=== PATIENT | female | born 1995 | race Caucasian/White ===

== ENCOUNTER 2025-04-12 00:13 | Day surgery (SDC) | payer BC, SELFPAY ==
[2025-04-06 14:29] VITALS: BMI 29.7
--- OUTSIDE RECORDS SUMMARY | 2025-04-12 00:16 | XMS_ITS | Clinical Summary ---
Author Organization [facility] [employer] Address [address] [place] [address] Care Team Providers Care Certified Rehabilitation Counselor Name Role Phone Unavailable Primary Care Provider Unavailabl e Source Comments [facility] [employer],non-owned Affiliates and Associated Physician Practices is amultiple site organization consisting of ambulatory clinics and hospital sitesin [place], [place], [place] and [place]. This disclosure is being madepursuant to the Care Everywhere program and may not contain all information available regarding this patient. Last updated 18.[facility] [employer] Allergies No known active allergies Medications * Be aware that medications may not be up to date on this document. Alwaysverify current medications with the patient. No known medications Social History Tobacco Use Types Packs/Day Years Used Date Smoking Tobacco: Never Smokeless Tobacco: Never Comments Unknown Sex and Gender Information Value Date Recorded Sex Assigned at Not on file Legal Sex Female 7:45 AM CDT Gender Identity Not on file Sexual Orientation Not on file Last Filed Vital Signs Vital Sign Reading Time Taken Comments Blood Pressure 110/62 08/20/2020 12:13 PM WILDLIFE FORENSIC GENETICIST Pulse 68 08/20/2020 12:13 PM WILDLIFE FORENSIC GENETICIST Temperature 36.8 C (98.2 F) 08/20/2020 12:13 PM WILDLIFE FORENSIC GENETICIST Respiratory Rate 16 08/20/2020 12:13 PM WILDLIFE FORENSIC GENETICIST Oxygen Saturation 99% 08/20/2020 12:13 PM WILDLIFE FORENSIC GENETICIST Inhaled Oxygen Concentration - - Weight 72.6 kg (160 lb) 08/20/2020 12:13 PM WILDLIFE FORENSIC GENETICIST Height 170.2 cm (5' 7) 08/20/2020 12:13 PM WILDLIFE FORENSIC GENETICIST Body Mass Index 25.06 08/20/2020 12:13 PM WILDLIFE FORENSIC GENETICIST Plan of Treatment Health Maintenance Due Date Last Done Comments HIV SCREENING 2008 HEPATITIS C SCREENING 11/28/2011 DTAP/TDAP/TD VACCINES (1 - Tdap) 2012 HEPATITIS B VACCINE (1 of 3 - 19+ 3-dose series) 2012 HPV VACCINE (1 - 3-dose SCDM series) 2020 DEPRESSION SCREENING 08/02/2024 COVID-19 VACCINE (1 - 2023-2 5 season) 2025 INFLUENZA VACCINE (#1) 2025 ZOSTER VACCINE (1 of 2) 12/03/2043 HIB VACCINE Aged Out No longer eligi ble based on patient's age to complete this topic MENINGOCOCCAL (Group B) VACC INE SHARED DECISION-MAKING Aged Out No longer eligibl e based on patient's age to complete this topic MENINGOCOCCAL GROUPS A/C/Y/W VACCINE Aged Out No longer eligible b ased on patient's age to complete this topic PNEUMOCOCCAL VACCINE Aged Out No long er eligible based on patient's age to complete this topic Insurance [facility]
[2025-04-12 09:52] VITALS: BP 113/64; PULSE 70; RESP 16; TEMP 36.3; O2SAT 100; BMI 29.7
[2025-04-12] MEDS: LACTATED RINGERS 1,000 ML 150 ML IV CONT (10:10)
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
--- NOTE | 2025-04-12 10:26 | WPDHPUPDATE1 ---
History and Physical Update Update Date/Time: 04/12/25 10:26 History and Physical has been reviewed, including an updated exam of the patient. There are NO changes in the patient's condition. Risks, benefits, and alternatives have been discussed and questions answered. Patient agrees to proceed with procedure.
--- NOTE | 2025-04-12 10:31 | S_PTH ---
PATIENT: Rolly Potter LOC: [facility] Dahl#:[id number] AGE/SX: 29/F ROOM: RE04/12/[address]: Tavo Rousseau MD : 1995 BED: DIS: 04/12/2025 SPEC #: [id number] RECD: 04/12/25 11:44 STATUS: MARCOS RERandy #: [id number] CHERI: 04/12/25 10:[address]: Tavo Rousseau DEPT: [facility] Surgical RECD BY: Hetal Hood ENTERED: 04/12/25 11:44 SP TYPE: Surgical OTHR DR: Mateo Mccullough MD Tissues: A - Gastric Biopsy B - Esophageal Biopsy Procedures: Hematoxylin and Eosin Stain Gross and Microscopic Level 4 H.Pylori
[2025-04-12 10:33] VITALS: BP 113/64; PULSE 70; RESP 16; TEMP 36.3; O2SAT 100
[2025-04-12 10:34] LABS: BEDSIDEPREGUCG Negative (Negative)
[2025-04-12 10:43] VITALS: BP 110/72; PULSE 69; RESP 22; O2SAT 100
[2025-04-12 10:53] VITALS: BP 105/56; PULSE 70; RESP 20; O2SAT 100
== END 2025-04-12 11:13 | disposition home or self-care (01) ==
PROVIDERS: PCP Family Medicine; Referring Provider Nurse Practitioner Family; Visit Provider Internal Medicine Gastroenterology
PROC: 0DJ08ZZ Inspection of Upper Intestinal Tract, Via Natural or Artificial Opening Endoscopic (ICD-10-PCS; CPT 43239; principal; 2025-04-12 10:45)
DX: K21.9 Gastro-esophageal reflux disease without esophagitis (principal); K29.50 Unspecified chronic gastritis without bleeding; J45.909 Unspecified asthma, uncomplicated; G89.29 Other chronic pain; M54.50 Low back pain, unspecified; F12.90 Cannabis use, unspecified, uncomplicated; Z98.890 Other specified postprocedural states
CPT/HCPCS: 43239; 88305; 88342; J2003; J2704; J7120

== ENCOUNTER 2025-04-30 01:19 | Day surgery (SDC) | payer BC, SELFPAY ==
[2025-04-18 13:03] VITALS: BMI 29.7
--- NOTE | 2025-04-18 13:06 | PC.NURSE ---
Report to the Outpatient Waiting Room, entrance under the green pavilion located off [facility], at time _1230_ on date _04/30/25_. Planned Procedure Time: _1430_.? Time changes happen often and if your time is changed the preop area will call you the afternoon before. - You and your visitor will be asked to self-screen and do not enter if you have any COVID symptoms. Please call surgeon if you need to reschedule. - A mask is optional within the hospital at this time. Patients may have clear liquids (water, carbonated beverages, clear teas, apple juice) until 3 hours prior to surgery with a maximum of 20 ounces. - No food from midnight until time of surgery and no smoking, or chewing tobacco (or any form of nicotine). No chewing gum, candy or mints. - Infants may have breast milk until 4 hours before surgery, infant formula 6 hours prior to surgery. - Children will be allowed to drink immediately following surgery.? If applicable, please bring a bottle or sippy cup to assist with drinking. Juice, water, soda, and popsicles are readily available.? For infants on formula, please bring formula the day of surgery.? Pacifiers are allowed. Take only the following medications with a SIP of water on the morning of surgery: __NONE DO NOT STOP ANY OF YOUR OTHER PRESCRIPTION MEDICATIONS PRIOR TO SURGERY EXCEPT THE FOLLOWING Hold all vitamins and supplements for 3 days per anesthesiologist. Medications to discontinue per physician Date to take last dose Please no make-up, nail german, hairspray, perfume, deodorant, or body powder the day of surgery.? No jewelry (including any body piercings) or valuables the day of surgery, leave them at home.? Please take a shower or bath the night before, or the morning of, surgery with HIBICLENS antibacterial soap.? Wear comfortable, loose fitting clothing.? Children are encouraged to wear pajamas. - Jewelry must be removed prior to entering the operating room.? Rings and piercings that are not removed may be cut off. - The hospital will not accept responsibility for valuables.? - Please leave all valuables, including medications, at home the day of surgery. If you are going home after surgery, a licensed tractor sweeper driver must drive you home.? - NO public transportation without another adult if you receive anesthesia. - We recommend that an adult stay with you for 24 hours following discharge. - We also recommend that you do not drive, make important decision, drink alcoholic beverages, or take any drugs that were not prescribed by your health care provider for at least 24 hours after your discharge time. For Pediatric surgeries, we recommend two adults accompany the child home. Follow any additional instructions given to you from your surgeon. Telephone instructions given to PATIENT_and asked if any additional questions and then verbalized understanding. Patient advised to call surgeon office or pre surgery nurse liaison [phone] if any additional questions.
[2025-04-30] VITALS (7 sets, daily range): BP systolic 100–123; BP diastolic 51–69; PULSE 66–86; RESP 14–20; TEMP 36.2–36.6; O2SAT 100
--- OUTSIDE RECORDS SUMMARY | 2025-04-30 01:23 | XMS_ITS | Encounter Summary ---
Author Organization [facility] Healthcare Address [facility] [place] [address] Care Team Providers Care Litigation Associate Name Role Phone Miscellaneous, Not In File Primary Care Provider Unavailable Encounter Details Date Type Department Care Team (Late st Contact Info) Description 04/26/2025 Results Follow-Up [facility] [address] [place] [id number] Terrie Muñoz, DO [address] [place] [address] Pap and High Risk HPV and Genotyping (Cytology Component) Social History Tobacco Use Types Packs/Day Years Used Date Smoking Tobacco: Never Smokeless Tobacco: Never Comments No Sex and Gender Information Value Date Recorded Sex Assigned at Not on file 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 Gender Identity Not on file Sexual Orientation Not on file documented as of this encounter Ordered Prescriptions Prescription Sig Dispense Quantity Refills Last Filled Start Date End Date metroNIDAZOLE (FLAGYL) 500 mg tablet Take 1 tablet (500 mg total) by mouth 2 (two) times a day for 7 days 14 tablet 04/26/2025 05/03/2025 documented in this encounter Plan of Treatment Not on file documented as of this encounter Visit Diagnoses Not on filedocumented in this encounter Care Teams Litigation Associate Relationship Specialty Start Date End Date Miscellaneous, Not In File PCP - General 02/25/23 documented as of this encounter
--- OUTSIDE RECORDS SUMMARY | 2025-04-30 01:23 | XMS_ITS | Clinical Summary ---
Author Organization [facility] Address [address] [place] [phone] Care Team Providers Care Mud Cleaner Operator Name Role Phone Miscellaneous, Not In File Primary Care Provider Unavailable Allergies No known active allergies Medications omeprazole (PriLOSEC) 20 mg capsule Take 1 capsule (20 mg total) by mouth daily 03/26/2025 Active metroNIDAZOLE (FLAGYL) 500 mg tablet Take 1 tablet (500 mg total) by mouth 2 (two) times a day for 7 days 14 tablet 04/26/2025 Active Active Problems No known active problems Encounters Date Type Department Care Team Description 04/26/2025 Results Follow-Up [address] [phone] Terrie Muñoz DO Pap and High Risk HPV and Genotyping (Cytology Component) 04/23/2025 10:28 AM CDT - 04/23/2025 11:59 PM CDT Hospital Encounter [facility] [address] [place] [phone] Screening for malignant neoplasm of cervix Discharge Disposition: Discharge to home or self care 04/23/2025 10:00 AM CDT Office Visit [facility] [address] [place] [address] Terrie Muñoz DO Encounter for annual routine gynecological examination (Primary Dx); Screening for malignant neoplasm of cervix 04/20/2025 Telephone [facility] [address] [place] [address] Terrie Muñoz DO Appointment Reminder Call from Last 3 Months Medical History Medical History Date Comments GERD (gastroesophageal reflux disease) 03/26/2025 Social History Tobacco Use Types Packs/Day Years Used Date Smoking Tobacco: Never Smokeless Tobacco: Never Tobacco Cessation:Counseling Given: Not Answered Comments No Sex and Gender Information Value Date Recorded Sex Assigned at Not on file 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 Gender Identity Not on file Sexual Orientation Not on file Obstetrics History Para Term AB IAB SAB Ectopic Multiple Livin g Live Births 0 0 0 0 0 0 0 0 0 0 0 Last Filed Vital Signs Vital Sign Reading Time Taken Comments Blood Pressure 126/62 04/23/2025 9:51 AM CDT Pulse - - Temperature - - Respiratory Rate - - Oxygen Saturation - - Inhaled Oxygen Concentration - - Weight 87.1 kg (192 lb) 04/23/2025 9:51 AM CDT Height 170.2 cm (5' 7) 04/23/2025 9:51 AM CDT Body Mass Index 30.07 04/23/2025 9:51 AM CDT Plan of Treatment Health Maintenance Due Date Last Done Comments Depression Screening 1995 Hepatitis C Screening 1995 DTaP/Tdap/Td Vaccine (1 - Tdap) 2004 Varicella Vaccines (1 of 2 - 13+ 2-dose series) 2006 Hepatitis B Screening 12/03/2011 HPV Vaccines (1 - 3-dose SCD M series) 2020 Influenza Vaccine (#1) 2025 Cervical Cancer Screening 04/23/20262024, 04/23/2025 Regular Well Visit/Exam 18-64 04/23/2026 04/23/2025 Pneumococcal vaccine <65 Aged Out No longer eligible based on patient's age to complete this topic Procedures Procedure Name Priority Date/Time Associated Diagnosis Comments HIGH RISK HPV DNA DETECTION WITH GENOTYPING Routine 04/23/2025 3:15 PM CDT Screening for malignant neoplasm of cervix PAP AND HIGH RISK HPV, REFLEX TO GENOTYPING Routine 04/23/2025 12:14 PM CDT Screening for malignant neoplasm of cervix from Last 3 Months Results * High Risk HPV DNA Detection with Genotyping (Molecular component) (04/23/2025 3:15 PM CDT) HPV HR 16 Not Detected Not Detected [facility] Comment:Testing performed by : [facility], [address] [place]., [address] HPV HR 18 Not Detected Not Detected [facility] Comment:Testing performed by : [facility], [address] [place]., [address] HPV HR Non 16/18 Not Detected Not Detected [facility] Comment: Interpretive Data Nucleic acid amplification for detection of high-risk Human Papilloma virus (HPV) is performed by the Tayo Richard 6800 HPV test. This assay specifically detects HPV-16 and HPV-18 genotypes. The following HPV genotypes are detected as high-risk HPV: HPV-31, 33, 35, ,39, 45, 51, 52, 56, 58, 59, 66, and 68. This assay has been approved by the [place] Food and Drug Administration for detection of HPV in cervical specimens collected by a physician using an endocervical brush/spatula or cervical broom and placed in the ThinPrep Pap Test PreservCyt collection containers. The performance characteristics of this test have been verified by the [facility] Molecular Infectious Disease laboratory. Correlate with separately reported cytology results, as applicable. Interpretive data last revised 23 Testing performed by: [facility], [address] [place]., [address] Endocervical 04/23/2025 3:15 PM CDT 04/24/2025 4:08 PM CDT Narrative [facility] - 04/24/2025 9:56 PM CDT Clinical history and diagnosis->Liquid-based PAP test with high risk HPV test- Z12.4 Number of vials->1 Testing type->Screening Last menstrual period (date if known)->03/30/25 Terrie Muñoz DO LAB BODY FLUIDS AND STO OLS ORDERABLES Final Result [facility] [address] Department of Laboratories [place] [id number] [facility] * Pap and High Risk HPV and Genotyping (Cytology Component) (04/23/2025 12:14 PM CDT) Thin prep (Pap test) 04/23/2025 12:14 PM CDT 04/23/2025 12:14 PM CDT Narrative PATHOLOGY CH - 04/25/2025 2:[address] [facility] Department of Pathology [address] [place] [id number] Final Report with Addendum Note to Patients: This report may contain a detailed description of human tissue sent by a health care provider to the laboratory for pathologic evaluation. The content of this report is essential for diagnosis and may provide important critical findings. This information may be unfamiliar to patients to review without a medical professional present. It is advised that the patient review this report in the presence of a health care provider who can answer questions and explain the details. Patient Name: ROLLY TOUSSAINT Address: [address] [place] [address] Gender: F : 1995 (Age: 29) Service: Location: [facility] : [id number] Hospital #: [id number] Patient Type: [facility] SPECIMEN Taken: 04/23/2025 Received: 04/23/2025 Accessioned:: 04/24/2025 Reported: 04/25/2025 Physician(s): Bryon Zimmerman D.O. Diagnosis: SOURCE OF SPECIMEN SCREENING THIN PREP IMAGED PAP w/ HPV: STATEMENT OF ADEQUACY - Satisfactory for evaluation; endocervical/transformation zone component present GENERAL CATEGORIZATION: - Negative for intraepithelial lesion or malignancy INTERPRETATION: - Predominance of coccobacilli consistent with shift in vaginal srikanth. Possible bacterial vaginosis SUZY Treviño(ASCP) Report Electronically Reviewed and Signed Out By SUZY Treviño(ASCP) 04/25/2025 14:52:22Addenda: HPV Test Interpretation (Normal-Negative for High Risk HPV) HPV HR 16- Not detected HPV HR 18-Not detected HPV HR non 16/18- Not detected Interpretive Data Nucleic acid amplification for detection of high-risk Human Papilloma virus (HPV) is performed by the Tayo Richard 6800 HPV test. This assay specifically detects HPV- 16 and HPV-18 genotypes. The following HPV genotypes are detected as high-risk HPV: HPV-31, 33, 35, 39, 45, 51, 52, 56, 58, 59, 66, and 68. This assay has been approved by the [place] Food and Drug Administration for detection of HPV in cervical specimens collected by a physician using an endocervical brush/spatula or cervical broom and placed in the ThinPrep Pap Test PreservCyt collection containers. The performance characteristics of this test have been verified by the [facility] Molecular Infectious Disease laboratory. Correlate with reported cytology results, as applicable. Interpretive data last revised 23 SUZY Maldonado(ASCP)Report Electronically Reviewed and Signed Out By SUZY Maldonado(ASCP) 04/25/2025 11:55:29 Specimen(s) Received: A: SCREENING THIN PREP IMAGED PAP w/ HPV Clinical History: Last Menstrual Period: 03/30/25 The Pap test is a screening test used to aid in the detection of cervical cancer and its precursors. It should not be the sole means by which malignant and premalignant lesions are diagnosed. Both false negative and false positive results may occur. It also has poor sensitivity for the detection of endometrial lesions and should not be used to evaluate suspected endometrial abnormalities. For these reasons it is most important to obtain Pap tests at regular intervals. The performance characteristics of some immunohistochemical stains, fluorescence in-situ hybridization tests and immunophenotyping by flow cytometry cited in this report (if any) were determined by the Surgical Pathology Department at [facility] as part of an ongoing customer quality engineer program and in compliance with federally mandated regulations drawn from the Clinical Laboratory Improvement Act of 1988 (CLIA '88). Some of these tests rely on the use of analyte specific reagents and are subject to specific labeling requirements by the [place] Food and Drug Administration. Such diagnostic tests may only be performed in a facility that is certified by the Department of Health and Human Services as a high complexity laboratory under CLIA '88. The FDA has determined that such clearance or approval is not necessary. This test is used for clinical purposes. It should not be regarded as investigational or for research. Nevertheless, federal rules concerning the medical use of analyte specific reagents require that the following disclaimer be attached to the report: This test was developed and its performance characteristics determined by the Surgical Pathology Department [facility]. It has not been cleared or approved by the U. S. Food and Drug Administration. Terrie Muñoz DO LAB CYTOLOGY ORDERABLES Final Result PATHOLOGY [address] [place] [address] from Last 3 Months Insurance [employer] Care Teams Mud Cleaner Operator Relationship Specialty Start Date End Date Miscellaneous, Not In File PCP - General 02/25/23
--- OUTSIDE RECORDS SUMMARY | 2025-04-30 01:23 | XMS_ITS | Clinical Summary ---
Author Organization [facility] Address [address] [facility] [place] [address] Care Team Providers Care House Wrecker Name Role Phone Unavailable Primary Care Provider Unavailabl e Source Comments [facility],non-owned Affiliates and Associated Physician Practices is amultiple site organization consisting of ambulatory clinics and hospital sitesin [place], [place], [place] and [place]. This disclosure is being madepursuant to the Care Everywhere program and may not contain all information available regarding this patient. Last updated 18.[facility] Allergies No known active allergies Medications * [...] Comments Blood Pressure 110/62 08/20/2020 12:13 PM PAINTER PLATE Pulse 68 08/20/2020 12:13 PM PAINTER PLATE Temperature 36.8 C (98.2 F) 08/20/2020 12:13 PM PAINTER PLATE Respiratory Rate 16 08/20/2020 12:13 PM PAINTER PLATE Oxygen Saturation 99% 08/20/2020 12:13 PM PAINTER PLATE Inhaled Oxygen Concentration - - Weight 72.6 kg (160 lb) 08/20/2020 12:13 PM PAINTER PLATE Height 170.2 cm (5' 7) 08/20/2020 12:13 PM PAINTER PLATE Body Mass Index 25.06 08/20/2020 12:13 PM PAINTER PLATE Plan of Treatment Health Maintenance Due Date Last Done Comments HIV SCREENING 2008 HEPATITIS C SCREENING 11/28/2011 DTAP/TDAP/TD VACCINES (1 - Tdap) 2012 HEPATITIS B VACCINE (1 of 3 - 19+ 3-dose series) 2012 PAP SMEAR 2014 HPV VACCINE (1 - 3-dose SCDM series) [...] patient's age to complete this topic Insurance [facility] SELF PAY NO INSURANCE Member Subscriber Plan / Payer (Ef fective for All Dates) Name:Tariq Lidabilly Member ID:Not on file Relation to Subscriber:Not on file Name:ROLLY POTTER Subscriber ID:Not on file (Home) Address: [address] [place] [phone] Payer ID:Not on file Group ID:Not on file Type:Self Pay Address: [place], [place]
--- NOTE | 2025-04-30 11:00 | WPDHPUPDATE1 ---
History and Physical Update Update Date/Time: 04/30/25 11:00 History and Physical has been reviewed, including an updated exam of the patient. There are NO changes in the patient's condition. Risks, benefits, and alternatives have been discussed and questions answered. Patient agrees to proceed with procedure.
[2025-04-30] MEDS: ACETAMINOPHEN 500 MG TABLET 1000 MG PO (11:40)
[2025-04-30] MEDS: LACTATED RINGERS 1,000 ML 30 ML IV CONT (11:40)
[2025-04-30] MEDS: KETOROLAC 15 MG/ML VIAL (*BKC) IV PUSH ×2 (11:40→15:04)
[2025-04-30 12:08] LABS: BEDSIDEPREGUCG Negative (Negative)
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
[2025-04-30] MEDS: ceFAZolin 2 GM in SODIUM CHLORIDE 0.9% IV 50 ML 100 ML IVPB (14:04)
[2025-04-30] MEDS: LIDOCAINE 1% LOCAL INJ 10 ML VIAL 30 ML INFILTRATE (14:34)
[2025-04-30] MEDS: BUPIVACAINE/EPINEPHRINE 0.5% 50 ML VIAL 30 ML INFILTRATE (14:34)
--- NOTE | 2025-04-30 14:57 | S_PTH ---
PATIENT: Rolly Potter LOC: [facility] U#:[id number] AGE/SX: 29/F ROOM: RE04/30/[address]: Bryan Gage MD : 1995 BED: DIS: 04/30/2025 SPEC #: [id number] RECD: 05/01/25 08:25 STATUS: MARCOS RERandy #: [id number] CHERI: 04/30/25 14:[address]: Bryan Gage DEPT: [facility] Surgical RECD BY: Adilia Nguyen ENTERED: 05/01/25 08:25 SP TYPE: Surgical OTHR DR: Mateo Mccullough MD Tissues: A - Skin Procedures: Hematoxylin and Eosin Stain Gross and Microscopic Level 4
--- NOTE | 2025-04-30 17:36 | W.PM.PROC2 ---
Procedure Note - Detailed Date of Procedure 04/30/25 Pre-op Diagnosis anal fistula Post-op Diagnosis Same Procedure Performed Anal fistulectomy. Surgeon Bryan Gage MD [employer] [facility] Anesthesia General Indications Patient is a 29-year-old female who has had intermittent drainage from a chronic anal fistula located anteriorly in the midline. There is a palpable fistula tract lateral to the left perineal area without external opening however there is a palpable nodule in area consistent with a likely chronic abscess. She presents now for anal fistulectomy. Findings The patient had a long tract anal fistula with the internal opening in the anterior midline at the 12 o'clock position just inside the anal opening at the base of 1 of the anal crypts. This was connected to a chronic abscess cavity and the left side of the perineum by a relatively long tract measuring about 6cm in length. The tract went through a small portion of the internal sphincter muscles which was divided to remove the tract altogether. Less than a 3rd of the internal sphincter muscle was divided to remove the fistula tract. Description of Procedure After informed consent was obtained patient brought to the operating room she was placed onto the operating table and then into the lithotomy position [facility] General endotracheal anesthesia was administered. The perianal region and perineum was then prepped and draped usual sterile fashion. Time-out was then performed correctly identifying the patient as well as procedure to be performed. She was given perioperative IV antibiotics. I then started by palpating the fistula tract. It was relatively long extending to the left side of the perineum from the internal opening which was located at the 12 o'clock position in the anterior midline. The length of the tract was approximately 6cm. I 1st started by utilizing the electrocautery on cut to make an incision about 1cm away from the anal verge in the skin and I dissected down to the fibers fistula tract. I then isolated the tract. Then with a clamp on the tract I cored out the tract towards the anal canal and in doing so divided a small portion of the internal sphincter muscle. This was less than 1/3 of the internal sphincter muscle. I excised out this portion of the tract which led to a very small opening in the mucosa just inside the anal verge at the base of 1 of the anal crypts. This part of the fistula tract was passed off table to be sent to pathology. Then with traction on the part of the fistula tract that extended laterally I very carefully with electrocautery dissection cored this out through the same incision. As I got more lateral on the fistula tract I entered a debris and mucus filled chronic abscess cavity. I completely excised out the fistula tract and sent this to pathology for examination. I then cleaned out the chronic abscess cavity by irrigating out the area and removing all of the mucoid material. I then fulgurated the abscess cavity with electrocautery. Hemostasis was good. I then proceeded to pack the subcutaneous tract but I created by coring out the fistula tract. I then injected 1% lidocaine mixed with 0.5% Marcaine around the incision 1st local anesthetic effect. I then administered a perianal block by injecting remaining portion of the local anesthetic mixture in the perianal region and administering bilateral pudendal nerve blocks. The area was then cleaned and then 4x4 gauze ABD pad and disposable underwear was placed. The patient tolerated the procedure well no complications. All sponges, needles, and instrument counts were correct at the end procedure. EBL was _10__cc. The patient was awakened and taken to recovery in stable and satisfactory condition. Implants None Estimated Blood Loss 10 Drains No Packing Yes (Quarter-inch iodoform gauze perianal wound.) Pathology Yes (Fistula tract sent to pathology) Complications No immediate complications Condition Stable Disposition PACU [facility] Billing Surgery - Charge Forward: Surgery Billing
== END 2025-04-30 16:40 | disposition home or self-care (01) ==
PROVIDERS: PCP Family Medicine; Visit Provider Surgery
PROC: (CPT 46275; principal; 2025-04-30 13:00)
DX: K60.30 Anal fistula, unspecified (principal); D23.5 Other benign neoplasm of skin of trunk; K62.89 Other specified diseases of anus and rectum; K21.9 Gastro-esophageal reflux disease without esophagitis; J45.909 Unspecified asthma, uncomplicated; G89.29 Other chronic pain; M54.50 Low back pain, unspecified; F12.90 Cannabis use, unspecified, uncomplicated; E66.9 Obesity, unspecified; Z68.29 Body mass index [BMI] 29.0-29.9, adult; Z98.890 Other specified postprocedural states
CPT/HCPCS: 46275; 88305; J0690; A9270; J1100; J1885; J2003; J2004; J2250; J2405; J2704; J3010; J7120